=== PATIENT | male | born 1990 | race Caucasian/White ===

== ENCOUNTER 2022-12-04 01:27 | Emergency (ER) | payer SELFPAY ==
[~2022-12-04] VITALS: Ht 182.9 cm; Wt 73.0 kg
[2022-12-04 01:31] VITALS: O2SAT 96
[2022-12-04] MEDS ORDERED: ONDANSETRON HCL 4MG/2ML INJ IV STA (01:40)
[2022-12-04] MEDS ORDERED: SODIUM CHLORIDE 0.9% 1,000 ML IV ONE (01:45)
[2022-12-04 03:07] LABS: HEMATOCRIT. 42.1 % (42.0-52.0); HEMOGLOBIN. 13.9 g/dL (14.0-18.0); MEAN CORPUSCULAR HEMOGLOBIN 30.6 pg (28.0-32.0); MEAN CORPUSCULAR VOLUME 92.8 fL (80.0-94.0); MEAN PLATELET VOLUME 8.9 fl (7.4-10.4); PLATELET 205 x1000/uL (130-400); RED BLOOD CELL COUNT 4.54 mill/uL (4.7-6.1); RED CELL DISTRIBUTION WIDTH 13.7 % (11.6-14.6); WHITE BLOOD COUNT 25.4 x1000/uL (4.5-11.0)
[2022-12-04 03:10] LABS: CHLORIDE 109 mEq/L (98-107); INDEX HEMOLYSI 1 (1-3); INDEX ICTERIC 1 (1-4); INDEX LIPEMIC 1 (1-3); POTASSIUM 3.3 mEq/L (3.5-5.1); SODIUM 139 mEq/L (136-145)
[2022-12-04 03:12] LABS: DIFFERENTIAL COMMENT 1; INR 1.1; PROTHROMBIN TIME 11.4 sec (9.6-11.0)
[2022-12-04 03:17] LABS: ALANINE AMINOTRANSFERASE 20 IU/L (13-61); ALBUMIN 4.4 g/dL (3.4-5.0); ASPARTATE AMINOTRANSFERASE 16 IU/L (15-37); BILIRUBIN TOTAL 0.6 mg/dL (0.1-1.0); CARBON DIOXIDE 25 mEq/L (21-32); CREATININE 0.9 mg/dL (0.6-1.3); ETHANOL BLOOD < 10 mg/dL (-10); GLUCOSE 111 mg/dL (70-105); PROTEIN TOTAL 8.2 g/dL (6.0-8.3); UREA NITROGEN BLOOD 11 mg/dL (7-21)
[2022-12-04 05:00] VITALS: BP 121/73; PULSE 51; RESP 16; TEMP 97.8
[2022-12-04 05:58] LABS: PLATELET ESTIMATE NORMAL
== END 2022-12-04 05:15 | disposition home or self-care (01) ==
LOC: ER 02:34
DX: D72.829 Elevated white blood cell count, unspecified (principal); R68.83 Chills (without fever); F12.10 Cannabis abuse, uncomplicated
CPT/HCPCS: 80053; 80320; 83690; 85025; 85610; 36415; 96361; 96374; 99283; J2405; J7030; Z7610; G0480